=== PATIENT | female | born 1940 | race Caucasian/White ===

== ENCOUNTER 2021-09-17 14:46 | Outpatient (CLI) | payer MEDICARE, OTHER | END 2021-09-17 14:47 | disposition home or self-care (01) | LOC: CSHMAMMO 14:46 | PROVIDERS: ATTEND Internal Medicine | DX: Z12.31 Encounter for screening mammogram for malignant neoplasm of breast (principal) | CPT/HCPCS: 77063; 77067 ==

== ENCOUNTER 2022-07-22 13:07 | Outpatient (CLI) | payer MEDICARE | END 2022-07-22 13:08 | disposition home or self-care (01) | LOC: CSHMRI 13:07 | PROVIDERS: ATTEND Neurological Surgery | DX: M50.322 Other cervical disc degeneration at C5-C6 level (principal); M54.50 Low back pain, unspecified; M47.812 Spondylosis without myelopathy or radiculopathy, cervical region; M47.816 Spondylosis without myelopathy or radiculopathy, lumbar region; M48.061 Spinal stenosis, lumbar region without neurogenic claudication | CPT/HCPCS: 72141; 72148 ==